=== PATIENT | female | born 1990 | race Caucasian/White ===

== ENCOUNTER 2024-06-15 23:43 | Emergency (ER) | payer MEDICAID ==
[~2024-06-15] VITALS: Ht 167.6 cm; Wt 113.0 kg
[2024-06-15 23:47] VITALS: BP 147/92; PULSE 90; RESP 18; TEMP 36.8; O2SAT 99
[2024-06-16] MEDS: TETANUS, DIPHTHERIA, PERTUSSIS VAC/PF 0.5ML (>10YR OLD) IM ONE (01:27)
[2024-06-16] MEDS: LIDOCAINE HCL/PF 1% 10 MG/ML 5ML VIAL INFIL ONE (01:38)
[2024-06-16] MEDS: BACITRACIN ZINC OINT UDPKT TOP ONE (01:38)
[2024-06-16] MEDS ORDERED: LIDO700A15 TP (02:51)
[2024-06-16] MEDS ORDERED: NAPR-1176 MT (02:51)
== END 2024-06-16 03:15 | disposition home or self-care (01) ==
LOC: ER 23:43
DX: S61.411A Laceration without foreign body of right hand, initial encounter (principal); W25.XXXA Contact with sharp glass, initial encounter; Y92.410 Unspecified street and highway as the place of occurrence of the external cause; Y92.89 Other specified places as the place of occurrence of the external cause; Y99.8 Other external cause status
CPT/HCPCS: 99283; 73130; 90715; 12002; 90471; J2003; Z7610